=== PATIENT | female | born 1945 | race Caucasian/White ===

== ENCOUNTER → 2019-03-21 | Outpatient (CLI) | payer OTHER ==
[~2019-03-21] MED LIST: ALBU90OI; BREO ELLIPTA 11 EACH; CHOL10002; CYAN1000; HYDACE10B PO; LEVO750 PO; OMEP20ER PO; TIOT18
[2019-03-21 09:28] LABS: BASOPHILS ABSOLUTE AUTO 0.03 K/mm3 (0.00-0.23); BASOPHILS PERCENT AUTO 0 % (0-2); EOSINOPHILS ABSOLUTE AUTO 0.02 K/mm3 (0.00-0.68); EOSINOPHILS PERCENT AUTO 0 % (0-6); Hematocrit 38.9 % (33.0-51.0); Hemoglobin 13.3 g/dL (11.5-16.0); IMMATURE GRAN ABSOLUTE AUTO 0.06 K/mm3 (0.00-0.10); IMMATURE GRAN PERCENT AUTO 0 % (0-1); LYMPHOCYTES ABSOLUTE AUTO 1.09 K/mm3 (0.84-5.20); LYMPHOCYTES PERCENT AUTO 7 % (21-46); MONOCYTES ABSOLUTE AUTO 1.13 K/mm3 (0.16-1.47); MONOCYTES PERCENT AUTO 8 % (4-13); Mean Corpuscular HGB 32.4 pg (26.0-34.0); Mean Corpuscular HGB Conc 34.2 g/dL (31.5-36.5); Mean Corpuscular Volume 95 fL (80-100); Mean Platelet Volume 8.8 fL (9.1-12.4); NEUTROPHILS ABSOLUTE AUTO 12.82 K/mm3 (1.96-9.15); NEUTROPHILS PERCENT AUTO 85 % (41-73); Platelet Count 335 K/mm3 (150-400); RDW Coefficient Variation 12.3 % (11.7-14.2); RDW Standard Deviation 42.6 fL (35.1-46.3); Red Blood Cell Count 4.11 M/mm3 (3.80-5.20); White Blood Cell Count 15.15 K/mm3 (4.00-11.30)
[2019-03-21 09:38] LABS: Alanine Aminotransfer (ALT/SGP 23 U/L (12-78); Albumin, Blood 3.2 g/dL (3.4-5.0); Albumin/Globulin Ratio 0.7 (0.8-1.8); Alk Phos 125 U/L (40-126); Anion Gap 11 mmol/L (6-16); Aspartate Aminotrans (AST/SGOT 27 U/L (12-37); Bilirubin, Total 0.4 mg/dL (0.1-1.0); Blood Urea Nitrogen 11 mg/dL (8-24); Bun/Creatinine Ratio 13.8 (12.0-20.0); CO2, Blood 27 mmol/L (21-32); Calcium, Blood 9.5 mg/dL (8.5-10.1); Chloride, Blood 94 mmol/L (98-108); Globulin, Blood 4.7 g/dL (2.2-4.0); Glomerular Filtration Rate >60 (60-); Glucose, Blood 110 mg/dL (70-99); Sodium, Blood 132 mmol/L (136-145); Total Protein, Blood 7.9 g/dL (6.4-8.2)
== END | disposition home or self-care (01) ==
LOC: LAB SHORT 09:23 → LAB EV 09:23
PROVIDERS: Physician Assistant
DX: R06.00 Dyspnea, unspecified (principal)
CPT/HCPCS: 80053; 85025

== ENCOUNTER 2019-08-15 12:27 | Emergency (ER) | payer OTHER ==
[~2019-08-15] VITALS: Ht 157.5 cm; Wt 34.5 kg
[2019-08-15 13:12] LABS: BASOPHILS ABSOLUTE AUTO 0.05 K/mm3 (0.00-0.23); BASOPHILS PERCENT AUTO 1 % (0-2); EOSINOPHILS ABSOLUTE AUTO 0.02 K/mm3 (0.00-0.68); EOSINOPHILS PERCENT AUTO 0 % (0-6); Hematocrit 41.5 % (33.0-51.0); IMMATURE GRAN ABSOLUTE AUTO 0.02 K/mm3 (0.00-0.10); IMMATURE GRAN PERCENT AUTO 0 % (0-1); LYMPHOCYTES ABSOLUTE AUTO 1.76 K/mm3 (0.84-5.20); LYMPHOCYTES PERCENT AUTO 24 % (21-46); MONOCYTES ABSOLUTE AUTO 0.42 K/mm3 (0.16-1.47); MONOCYTES PERCENT AUTO 6 % (4-13); Mean Corpuscular HGB 31.3 pg (26.0-34.0); Mean Corpuscular HGB Conc 31.3 g/dL (31.5-36.5); Mean Corpuscular Volume 100 fL (80-100); Mean Platelet Volume 9.7 fL (9.1-12.4); NEUTROPHILS ABSOLUTE AUTO 4.97 K/mm3 (1.96-9.15); NEUTROPHILS PERCENT AUTO 69 % (41-73); Platelet Count 226 K/mm3 (150-400); RDW Coefficient Variation 11.9 % (11.7-14.2); RDW Standard Deviation 43.9 fL (35.1-46.3); Red Blood Cell Count 4.15 M/mm3 (3.80-5.20); White Blood Cell Count 7.24 K/mm3 (4.00-11.30)
[2019-08-15 13:25] LABS: Alanine Aminotransfer (ALT/SGP 28 U/L (12-78); Albumin, Blood 3.8 g/dL (3.4-5.0); Albumin/Globulin Ratio 1.2 (0.8-1.8); Alk Phos 65 U/L (50-136); Anion Gap 10 mmol/L (6-16); Aspartate Aminotrans (AST/SGOT 40 U/L (12-37); Bilirubin, Total 0.3 mg/dL (0.1-1.0); Blood Urea Nitrogen 17 mg/dL (8-24); Bun/Creatinine Ratio 22.7 (12.0-20.0); CO2, Blood 31 mmol/L (21-32); Calcium, Blood 9.1 mg/dL (8.5-10.1); Chloride, Blood 97 mmol/L (98-108); Creatinine, Blood 0.75 mg/dL (0.40-1.00); Globulin, Blood 3.2 g/dL (2.2-4.0); Glomerular Filtration Rate >60 (60-); Glucose, Blood 62 mg/dL (70-99); Potassium, Blood 4.2 mmol/L (3.5-5.5); Sodium, Blood 138 mmol/L (136-145); Troponin I <0.015 ng/mL (0.000-0.040)
[2019-08-15] MEDS ORDERED: Prednisone20 MG PO (16:54)
== END 2019-08-15 17:24 | disposition home or self-care (01) ==
LOC: ER 12:27
PROVIDERS: Emergency Medicine
DX: I70.0 Atherosclerosis of aorta (principal); J44.9 Chronic obstructive pulmonary disease, unspecified; F17.200 Nicotine dependence, unspecified, uncomplicated; Z88.0 Allergy status to penicillin
CPT/HCPCS: 36415; 71046; 74177; 80053; 82947; 84484; 85025; 93005; 93010; 99285-25; Q9967

== ENCOUNTER 2019-11-21 11:33 | Day surgery (SDC) | payer OTHER ==
[~2019-11-21] VITALS: Ht 157.5 cm; Wt 32.7 kg
[~2019-11-21 11:33] MED LIST changes: +Prednisone20 MG PO; +SPIRIVA RESPIMAT4 GM INH
[2019-11-21] MEDS ORDERED: Norco 7.5-3251 EACH PO (12:14)
[2019-11-21] MEDS ORDERED: [UNRECOGNIZED DRUG - OTHER] INH (12:15)
--- NOTE | 2019-11-21 12:23 | NUR ---
11/21/19 1223 Shameka Evans V PT RECIEVED ADAM [place] PER DR. ALMARAZ ORDERS.
== END 2019-11-21 13:55 | disposition home or self-care (01) ==
LOC: ORSCSDS 11:33
PROVIDERS: Student in an Organized Health Care Education/Training Program
PROC: 0DB98ZX Excision of Duodenum, Via Natural or Artificial Opening Endoscopic, Diagnostic (ICD-10-PCS; principal; 2019-11-21 13:00)
PROC: 0DB48ZX Excision of Esophagogastric Junction, Via Natural or Artificial Opening Endoscopic, Diagnostic (ICD-10-PCS; principal; 2019-11-21 13:00)
PROC: 0DB58ZX Excision of Esophagus, Via Natural or Artificial Opening Endoscopic, Diagnostic (ICD-10-PCS; principal; 2019-11-21 13:00)
PROC: 0DB68ZX Excision of Stomach, Via Natural or Artificial Opening Endoscopic, Diagnostic (ICD-10-PCS; principal; 2019-11-21 13:00)
DX: R10.13 Epigastric pain (principal); K22.70 Barrett's esophagus without dysplasia; K29.70 Gastritis, unspecified, without bleeding; R63.4 Abnormal weight loss; J44.9 Chronic obstructive pulmonary disease, unspecified; K31.9 Disease of stomach and duodenum, unspecified; E78.5 Hyperlipidemia, unspecified; M79.7 Fibromyalgia; Z79.899 Other long term (current) drug therapy; Z99.81 Dependence on supplemental oxygen; F17.200 Nicotine dependence, unspecified, uncomplicated
CPT/HCPCS: 88305; 88341; 88342; J2250; J2370; J2704; J7120

== ENCOUNTER → 2020-07-02 | Outpatient (CLI) | payer OTHER ==
[~2020-07-02] MED LIST changes: +Norco 7.5-3251 EACH PO; +[UNRECOGNIZED DRUG - OTHER] INH
== END | disposition home or self-care (01) ==
LOC: LAB 12:55 → LAB SHORT 12:55
DX: N30.01 Acute cystitis with hematuria (principal)
CPT/HCPCS: 87077; 87086; 87186

== ENCOUNTER → 2020-10-29 | Outpatient (CLI) | payer OTHER ==
[2020-10-29 17:45] LABS: Source, Urine Clean Catch
[2020-10-29 19:46] LABS: Appearance, Urine Cloudy (Clear); Bilirubin, Urine Neg (Neg); Blood, Urine 1+ (Neg); Color, Urine Yellow (P-Yellow); Glucose Qualitative, Urine Neg (Neg); Ketones, Urine 1+ (Neg); Leukocyte Esterase, Urine 1+ (Neg); Nitrite, Urine Pos (Neg); Protein, Urine 3+ (Neg); Specific Gravity, Urine 1.015 (1.003-1.022); Urobilinogen, Urine NORM (Normal)
[2020-10-29 19:55] LABS: Red Blood Cells, Urine Not Seen /hpf (0-2)
[2020-10-29 19:56] LABS: Bacteria Many /hpf; Squamous Epithelial Cells Few /hpf (Few)
== END | disposition home or self-care (01) ==
LOC: LAB 17:44 → LAB SHORT 17:44
PROVIDERS: Nurse Practitioner Family
DX: R39.9 Unspecified symptoms and signs involving the genitourinary system (principal)
CPT/HCPCS: 81001; 87077; 87086; 87186

== ENCOUNTER → 2020-11-19 | Outpatient (CLI) | payer OTHER | END | disposition home or self-care (01) | LOC: LAB 10:00 → LAB SHORT 10:00 | DX: R39.9 Unspecified symptoms and signs involving the genitourinary system (principal) | CPT/HCPCS: 87086 ==

== ENCOUNTER → 2022-04-26 | Outpatient (CLI) | payer OTHER | END | disposition home or self-care (01) | LOC: LAB 12:00 → LAB SHORT 12:00 | DX: R30.9 Painful micturition, unspecified (principal) | CPT/HCPCS: 87077; 87086; 87186 ==

== ENCOUNTER → 2022-06-10 | Outpatient (CLI) | payer OTHER ==
[2022-06-10 10:53] LABS: Source, Urine Clean Catch
[2022-06-10 13:55] LABS: Appearance, Urine Hazy (Clear); Bilirubin, Urine Neg (Neg); Blood, Urine 1+ (Neg); Color, Urine Yellow (P-Yellow); Glucose Qualitative, Urine Neg (Neg); Ketones, Urine Neg (Neg); Leukocyte Esterase, Urine 1+ (Neg); Nitrite, Urine Pos (Neg); Protein, Urine 1+ (Neg); Urobilinogen, Urine NORM (Normal)
[2022-06-10 14:12] LABS: Bacteria Many /hpf; Squamous Epithelial Cells Mod /hpf (Few); White Blood Cells, Urine 25-50 /hpf (0-5)
[2022-06-10 14:13] LABS: Hyaline Casts 0-2 /lpf (0-2)
== END | disposition home or self-care (01) ==
LOC: LAB SHORT 09:10 → LAB 09:10
PROVIDERS: Nurse Practitioner Family
DX: N39.0 Urinary tract infection, site not specified (principal); R30.0 Dysuria
CPT/HCPCS: 81001; 87077; 87086; 87186

== ENCOUNTER → 2022-08-23 | Outpatient (CLI) | payer OTHER ==
[2022-08-23 12:57] LABS: Source, Urine Clean Catch
[2022-08-23 18:00] LABS: Appearance, Urine Hazy (Clear); Bilirubin, Urine Neg (Neg); Blood, Urine 1+ (Neg); Color, Urine Amber (P-Yellow); Glucose Qualitative, Urine Neg (Neg); Ketones, Urine Neg (Neg); Leukocyte Esterase, Urine 1+ (Neg); Nitrite, Urine Neg (Neg); Protein, Urine 2+ (Neg); Urobilinogen, Urine NORM (Normal)
[2022-08-23 18:19] LABS: Bacteria Many /hpf; Hyaline Casts 0-2 /lpf (0-2); Squamous Epithelial Cells Mod /hpf (Few)
== END | disposition home or self-care (01) ==
LOC: LAB SHORT 11:55 → LAB 11:55
PROVIDERS: Nurse Practitioner Family
DX: R30.0 Dysuria (principal)
CPT/HCPCS: 81001; 87077; 87086; 87186

== ENCOUNTER → 2023-05-11 | Outpatient (CLI) | payer OTHER | END | disposition home or self-care (01) | LOC: LAB 10:20 → LAB SHORT 10:20 | DX: R35.0 Frequency of micturition (principal) | CPT/HCPCS: 87077; 87086; 87186 ==

== ENCOUNTER → 2025-05-02 | Outpatient (CLI) | payer OTHER ==
[2025-05-02 09:13] LABS: Source, Urine Clean Catch
[2025-05-02 12:46] LABS: Bilirubin, Urine Neg (Neg); Color, Urine Yellow (P-Yellow); Glucose Qualitative, Urine Neg (Neg); Ketones, Urine Neg (Neg); Leukocyte Esterase, Urine Neg (Neg); Protein, Urine Neg (Neg); Specific Gravity, Urine 1.005 (1.003-1.022); Urobilinogen, Urine NORM (Normal)
== END | disposition home or self-care (01) ==
LOC: LAB SHORT 09:12 → LAB 09:12
PROVIDERS: Registered Nurse Emergency
DX: N39.46 Mixed incontinence (principal)
CPT/HCPCS: 81003